=== PATIENT | male | born 1975 | race Hispanic/Latino ===

== ENCOUNTER 2017-12-03 12:47 | Emergency (ER) | payer MEDICARE ==
[2017-12-03 14:23] LABS: BASOPHILS % (AUTO) 0.5 % (0.0-5.0); EOSINOPHILS % (AUTO) 0.8 % (0.0-8.0); HEMATOCRIT 38.7 % (42-54); LYMPHOCYTES % (AUTO) 12.9 % (21.0-51.0); MEAN CORPUSCULAR HEMOGLOBIN 31.4 pg (27.0-33.0); MEAN CORPUSCULAR HGB CONC 35.3 g/dL (32.0-36.0); MEAN CORPUSCULAR VOLUME 89.2 fL (79-99); MONOCYTES % (AUTO) 6.4 % (3.0-13.0); NEUTROPHILS % (AUTO) 79.4 % (40.0-77.0); PLATELET COUNT (AUTO) 214 K/uL (130-400); RED BLOOD CELL COUNT(AUTO) 4.34 MIL/uL (4.50-6.20); RED CELL DISTRIBUTION WIDTH 12.6 % (11.0-15.5); WHITE BLOOD COUNT (AUTO) 9.8 K/uL (4.8-10.8)
[2017-12-03 14:31] LABS: CREATININE 1.9 mg/dL (0.5-1.5); POTASSIUM 4.3 mmol/L (3.5-5.1)
[2017-12-03 14:35] LABS: ALBUMIN 3.3 g/dL (3.5-5.0); BILIRUBIN,TOTAL 0.5 mg/dL (0.2-1.0); CRP QUANTITATIVE 58.5 mg/L (0.00-9.0); TOTAL PROTEIN, SERUM 7.3 g/dL (6.0-8.3)
[2017-12-03] MEDS ORDERED: CLINDAMYCIN HCL 150 MG CAP ONE (15:28)
[2017-12-03 15:54] LABS: ERYTHROCYTE SEDIMENTATION RATE 35 MM/HR (0-15)
== END 2017-12-03 16:45 | disposition home or self-care (01) ==
LOC: EDH 12:47
DX: S92.515A Nondisplaced fracture of proximal phalanx of left lesser toe(s), initial encounter for closed fracture (principal); S91.312A Laceration without foreign body, left foot, initial encounter; E11.9 Type 2 diabetes mellitus without complications; I10 Essential (primary) hypertension; Z98.890 Other specified postprocedural states; Z79.2 Long term (current) use of antibiotics; Z79.899 Other long term (current) drug therapy; X58.XXXA Exposure to other specified factors, initial encounter; Y93.89 Activity, other specified; Y92.098 Other place in other non-institutional residence as the place of occurrence of the external cause; Y99.8 Other external cause status
CPT/HCPCS: 36415; 73660; 80053; 85025; 85651; 86140

== ENCOUNTER → 2020-07-28 | Outpatient (CLI) | payer MEDICARE ==
[~2020-07-28] MED LIST: LIDOCAINE HCL 4% LTA SOL 4 ML VIAL TP ONE
== END | disposition home or self-care (01) ==
LOC: WHH 11:05
PROVIDERS: ATTEND Family Medicine
DX: T87.89 Other complications of amputation stump (principal); E11.621 Type 2 diabetes mellitus with foot ulcer; I70.238 Atherosclerosis of native arteries of right leg with ulceration of other part of lower leg; L97.811 Non-pressure chronic ulcer of other part of right lower leg limited to breakdown of skin; E11.622 Type 2 diabetes mellitus with other skin ulcer; I70.235 Atherosclerosis of native arteries of right leg with ulceration of other part of foot; L97.512 Non-pressure chronic ulcer of other part of right foot with fat layer exposed; I70.232 Atherosclerosis of native arteries of right leg with ulceration of calf; L97.212 Non-pressure chronic ulcer of right calf with fat layer exposed; E66.9 Obesity, unspecified; I70.234 Atherosclerosis of native arteries of right leg with ulceration of heel and midfoot; L97.412 Non-pressure chronic ulcer of right heel and midfoot with fat layer exposed; S91.311A Laceration without foreign body, right foot, initial encounter; E11.52 Type 2 diabetes mellitus with diabetic peripheral angiopathy with gangrene; I96 Gangrene, not elsewhere classified; E11.42 Type 2 diabetes mellitus with diabetic polyneuropathy; K74.60 Unspecified cirrhosis of liver; E03.9 Hypothyroidism, unspecified; Z87.891 Personal history of nicotine dependence; Z68.29 Body mass index [BMI] 29.0-29.9, adult; Z79.899 Other long term (current) drug therapy; Z79.2 Long term (current) use of antibiotics; Z98.890 Other specified postprocedural states; Z90.49 Acquired absence of other specified parts of digestive tract; Z79.4 Long term (current) use of insulin; X58.XXXA Exposure to other specified factors, initial encounter; Y93.89 Activity, other specified; Y92.89 Other specified places as the place of occurrence of the external cause; Y99.8 Other external cause status; Y83.5 Amputation of limb(s) as the cause of abnormal reaction of the patient, or of later complication, without mention of misadventure at the time of the procedure; Y92.238 Other place in hospital as the place of occurrence of the external cause
CPT/HCPCS: 11042; A4450; A6021; A6197

== ENCOUNTER → 2020-08-07 | Outpatient (CLI) | payer MEDICARE | END | disposition home or self-care (01) | LOC: WHH 10:41 | PROVIDERS: ATTEND Family Medicine | DX: T87.89 Other complications of amputation stump (principal); E11.621 Type 2 diabetes mellitus with foot ulcer; I70.235 Atherosclerosis of native arteries of right leg with ulceration of other part of foot; L97.512 Non-pressure chronic ulcer of other part of right foot with fat layer exposed; I70.234 Atherosclerosis of native arteries of right leg with ulceration of heel and midfoot; L97.412 Non-pressure chronic ulcer of right heel and midfoot with fat layer exposed; E11.622 Type 2 diabetes mellitus with other skin ulcer; I70.238 Atherosclerosis of native arteries of right leg with ulceration of other part of lower leg; L97.811 Non-pressure chronic ulcer of other part of right lower leg limited to breakdown of skin; I70.232 Atherosclerosis of native arteries of right leg with ulceration of calf; L97.212 Non-pressure chronic ulcer of right calf with fat layer exposed; I70.231 Atherosclerosis of native arteries of right leg with ulceration of thigh; L97.111 Non-pressure chronic ulcer of right thigh limited to breakdown of skin; E66.9 Obesity, unspecified; S91.311D Laceration without foreign body, right foot, subsequent encounter; E11.52 Type 2 diabetes mellitus with diabetic peripheral angiopathy with gangrene; I96 Gangrene, not elsewhere classified; E11.42 Type 2 diabetes mellitus with diabetic polyneuropathy; K74.60 Unspecified cirrhosis of liver; E03.9 Hypothyroidism, unspecified; Z87.891 Personal history of nicotine dependence; Z68.29 Body mass index [BMI] 29.0-29.9, adult; Z79.899 Other long term (current) drug therapy; Z79.2 Long term (current) use of antibiotics; Z98.890 Other specified postprocedural states; Z90.49 Acquired absence of other specified parts of digestive tract; Z79.4 Long term (current) use of insulin; X58.XXXD Exposure to other specified factors, subsequent encounter; Y83.5 Amputation of limb(s) as the cause of abnormal reaction of the patient, or of later complication, without mention of misadventure at the time of the procedure | CPT/HCPCS: 11042; A6021; A6197 ==

== ENCOUNTER → 2020-08-14 | Outpatient (CLI) | payer MEDICARE | END | disposition home or self-care (01) | LOC: WHH 09:11 | PROVIDERS: ATTEND Family Medicine | DX: T87.89 Other complications of amputation stump (principal); E11.622 Type 2 diabetes mellitus with other skin ulcer; I70.232 Atherosclerosis of native arteries of right leg with ulceration of calf; L97.212 Non-pressure chronic ulcer of right calf with fat layer exposed; I70.238 Atherosclerosis of native arteries of right leg with ulceration of other part of lower leg; L97.811 Non-pressure chronic ulcer of other part of right lower leg limited to breakdown of skin; E11.621 Type 2 diabetes mellitus with foot ulcer; I70.234 Atherosclerosis of native arteries of right leg with ulceration of heel and midfoot; L97.512 Non-pressure chronic ulcer of other part of right foot with fat layer exposed; L97.412 Non-pressure chronic ulcer of right heel and midfoot with fat layer exposed; I70.231 Atherosclerosis of native arteries of right leg with ulceration of thigh; L97.111 Non-pressure chronic ulcer of right thigh limited to breakdown of skin; S81.012A Laceration without foreign body, left knee, initial encounter; S81.011A Laceration without foreign body, right knee, initial encounter; E66.9 Obesity, unspecified; E11.52 Type 2 diabetes mellitus with diabetic peripheral angiopathy with gangrene; I96 Gangrene, not elsewhere classified; E11.42 Type 2 diabetes mellitus with diabetic polyneuropathy; K74.60 Unspecified cirrhosis of liver; E03.9 Hypothyroidism, unspecified; Z87.891 Personal history of nicotine dependence; Z68.29 Body mass index [BMI] 29.0-29.9, adult; Z79.899 Other long term (current) drug therapy; Z79.2 Long term (current) use of antibiotics; Z98.890 Other specified postprocedural states; Z90.49 Acquired absence of other specified parts of digestive tract; Z79.4 Long term (current) use of insulin; Y83.5 Amputation of limb(s) as the cause of abnormal reaction of the patient, or of later complication, without mention of misadventure at the time of the procedure; X58.XXXA Exposure to other specified factors, initial encounter; Y93.89 Activity, other specified; Y92.89 Other specified places as the place of occurrence of the external cause; Y99.8 Other external cause status | CPT/HCPCS: 11042; G0463 ==

== ENCOUNTER 2020-09-07 09:58 | Inpatient (IN) | payer MEDICARE ==
[~2020-09-07] VITALS: Ht 165.1 cm; Wt 95.2 kg
[2020-09-07 10:50] LABS: BASOPHILS % (AUTO) 0.6 % (0.0-5.0); EOSINOPHILS % (AUTO) 0.7 % (0.0-8.0); LYMPHOCYTES % (AUTO) 10.1 % (21.0-51.0); MEAN CORPUSCULAR HGB CONC 32.4 g/dL (32.0-36.0); MEAN CORPUSCULAR VOLUME 98.8 fL (79-99); MONOCYTES % (AUTO) 7.7 % (3.0-13.0); NEUTROPHILS % (AUTO) 80.1 % (40.0-77.0); PLATELET COUNT (AUTO) 200 K/uL (130-400); RED BLOOD CELL COUNT(AUTO) 3.34 MIL/uL (4.50-6.20); RED CELL DISTRIBUTION WIDTH 17.1 % (11.0-15.5); WHITE BLOOD COUNT (AUTO) 9.4 K/uL (4.8-10.8)
[2020-09-07 10:54] VITALS: BP 127/73
[2020-09-07 11:05] LABS: CREATININE 3.2 mg/dL (0.5-1.5); POTASSIUM 4.3 mmol/L (3.5-5.1)
[2020-09-07 11:18] LABS: BILIRUBIN,TOTAL 13.6 mg/dL (0.2-1.0); TOTAL PROTEIN, SERUM 7.1 g/dL (6.0-8.3)
[2020-09-07 11:47] LABS: APPEARANCE,URINE CLOUDY (CLEAR); BILIRUBIN,URINE LARGE (NEGATIVE); COLOR,URINE BROWN (YELLOW); GLUCOSE, URINE (UA) 250 mg/dL (NEGATIVE); KETONES,URINE 5 mg/dL (NEGATIVE); LEUKOCYTE ESTERASE ,URINE NEGATIVE (NEGATIVE); NITRATE,URINE POSITIVE (NEGATIVE); OCCULT BLOOD,URINE LARGE (NEGATIVE); PROTEIN,URINE >=300 mg/dL (NEGATIVE)
[2020-09-07 12:57] LABS: BACTERIA,URINE Moderate /HPF (None Seen); SQUAMOUS EPITHELIAL CELL,UR 0-2 /HPF (0-2)
[2020-09-07 12:59] LABS: RBC,URINE 0-1 /HPF (0-1); WBC,URINE 0-1 /HPF (0-1)
[2020-09-07] MEDS ORDERED: FUROSEMIDE 40MG VIAL IV SCH (13:30)
[2020-09-07] MEDS: FUROSEMIDE 40MG VIAL IV SCH ×2 (13:30→22:06)
[2020-09-07] MEDS ORDERED: CEPH500C2 PO (13:36)
[2020-09-07] MEDS ORDERED: SPIR100T5 PO (13:36)
[2020-09-07] MEDS ORDERED: INSU100I24 SQ (13:36)
[2020-09-07] MEDS ORDERED: INSU100I3 SQ (13:36)
[2020-09-07] MEDS ORDERED: HYDR-3421 PO (13:36)
[2020-09-07] MEDS ORDERED: LEVO50CA4 PO (13:36)
[2020-09-07 14:46] VITALS: BP 130/84
[2020-09-07 14:48] LABS: AMMONIA 38 umol/L (11-32)
[2020-09-07 14:49] LABS: ACETAMINOPHEN < 1 mcg/mL (10-29); ALCOHOL, BLOOD < 3 mg/dL (0-10)
[2020-09-07] MEDS: CEFTRIAXONE 2GM VIAL IVP SCH (14:51)
[2020-09-07 14:52] LABS: AMPHET/METH SCREEN,URINE NEGATIVE (NEGATIVE); BARBITURATE SCREEN, URINE NEGATIVE (NEGATIVE); BENZODIAZEPINES SCREEN,URINE NEGATIVE (NEGATIVE); CANNABINOID SCREEN,URINE NEGATIVE (NEGATIVE); COCAINE SCREEN,URINE POSITIVE (NEGATIVE); CREATININE,URINE RANDOM 235 mg/dL (30-135); OPIATE SCREEN,URINE POSITIVE (NEGATIVE); PHENCYCLIDINE SCREEN,URINE NEGATIVE (NEGATIVE); SODIUM,URINE RANDOM < 13 mmol/l (40-220)
[2020-09-07 15:23] LABS: INR 1.18 (0.85-1.15); PROTHROMBIN TIME 12.7 SEC (9.6-11.6)
[2020-09-07 17:15] VITALS: BP 130/83
[2020-09-07 20:00] VITALS: BP 135/83
[2020-09-08] VITALS (9 sets, daily range): BP systolic 106–142; BP diastolic 69–86
[2020-09-08] MEDS ORDERED: AMIODARONE 900MG VIAL 150 MG in DEXTROSE 5%-WATER 100 ML IV SCH (00:30)
[2020-09-08] MEDS ORDERED: AMIODARONE 900MG VIAL 900 MG in DEXTROSE 5%-WATER 500 ML IV SCH (00:30)
[2020-09-08] MEDS: FUROSEMIDE 40MG VIAL IV SCH ×2 (04:57→21:52)
[2020-09-08 06:28] LABS: BASOPHILS % (AUTO) 0.5 % (0.0-5.0); EOSINOPHILS % (AUTO) 1.3 % (0.0-8.0); HEMATOCRIT 35.4 % (42-54); LYMPHOCYTES % (AUTO) 9.1 % (21.0-51.0); MEAN CORPUSCULAR HEMOGLOBIN 31.7 pg (27.0-33.0); MEAN CORPUSCULAR HGB CONC 31.1 g/dL (32.0-36.0); MONOCYTES % (AUTO) 9.1 % (3.0-13.0); NEUTROPHILS % (AUTO) 79.4 % (40.0-77.0); PLATELET COUNT (AUTO) 213 K/uL (130-400); RED BLOOD CELL COUNT(AUTO) 3.47 MIL/uL (4.50-6.20); RED CELL DISTRIBUTION WIDTH 17.3 % (11.0-15.5)
[2020-09-08 06:57] LABS: ALBUMIN 2.1 g/dL (3.5-5.0); CREATININE 3.2 mg/dL (0.5-1.5); MAGNESIUM 2.5 mg/dL (1.80-2.40); POTASSIUM 4.3 mmol/L (3.5-5.1); TOTAL PROTEIN, SERUM 7.4 g/dL (6.0-8.3)
[2020-09-08] MEDS: PANTOPRAZOLE 40 MG TAB DR PO SCH (08:55)
[2020-09-08] MEDS: METOLAZONE 2.5 MG TABLET PO SCH (08:55)
[2020-09-08] MEDS: SPIRONOLACTONE 25 MG TAB PO SCH ×2 (09:00→15:32)
[2020-09-08] MEDS ORDERED: SPIRONOLACTONE 25 MG TAB PO SCH (09:00)
[2020-09-08] MEDS ORDERED: THIAMINE HCL 100 MG TABLET PO SCH (10:00)
[2020-09-08] MEDS ORDERED: FOLIC ACID 1 MG TABLET PO SCH (10:00)
[2020-09-08] MEDS: CEFTRIAXONE 2GM VIAL IVP SCH (12:56)
[2020-09-08 21:04] LABS: APPEARANCE BODY FLUID SLIGHTLY CLOUDY (CLEAR); BODY FLUID WBC 9 /cu. mm.; COLOR,BODY FLUID YELLOW (LT YELLOW); SPECIMENTYPE,BODY FLUID PLEURAL; TOTAL VOLUME,BODY FLUID 1000 mL
[2020-09-08 21:05] LABS: BODY FLUID RBC 66 /cu. mm.
[2020-09-08 21:31] LABS: BF LYMPHOCYTE 28 %; BF MESOTHELIAL 17 %; BF MONOCYTE 7 %
[2020-09-09 00:01] VITALS: BP 129/80
[2020-09-09 03:53] VITALS: BP 136/80
[2020-09-09 04:28] LABS: BASOPHILS % (AUTO) 0.5 % (0.0-5.0); EOSINOPHILS % (AUTO) 1.5 % (0.0-8.0); HEMATOCRIT 32.9 % (42-54); LYMPHOCYTES % (AUTO) 7.5 % (21.0-51.0); MEAN CORPUSCULAR HEMOGLOBIN 31.8 pg (27.0-33.0); MEAN CORPUSCULAR HGB CONC 31.6 g/dL (32.0-36.0); MEAN CORPUSCULAR VOLUME 100.6 fL (79-99); MONOCYTES % (AUTO) 7.4 % (3.0-13.0); NEUTROPHILS % (AUTO) 82.6 % (40.0-77.0); PLATELET COUNT (AUTO) 202 K/uL (130-400); RED BLOOD CELL COUNT(AUTO) 3.27 MIL/uL (4.50-6.20); RED CELL DISTRIBUTION WIDTH 16.3 % (11.0-15.5); WHITE BLOOD COUNT (AUTO) 9.7 K/uL (4.8-10.8)
[2020-09-09 05:00] LABS: ALBUMIN 1.8 g/dL (3.5-5.0); BILIRUBIN,TOTAL 9.6 mg/dL (0.2-1.0); CREATININE 3.1 mg/dL (0.5-1.5); PHOSPHORUS 5.3 mg/dL (2.5-4.9); POTASSIUM 4.1 mmol/L (3.5-5.1); TOTAL PROTEIN, SERUM 6.7 g/dL (6.0-8.3)
[2020-09-09 05:01] LABS: % IRON SATURATION 24.4 % (30-44)
[2020-09-09] MEDS: FUROSEMIDE 40MG VIAL IV SCH ×3 (05:10→20:55)
[2020-09-09 08:00] VITALS: BP 131/81
[2020-09-09 08:14] LABS: HEPATITIS A ANTIBODY IGM Negative (Negative); HEPATITIS B CORE IGM Negative (Negative); HEPATITIS Bs ANTIGEN SCREEN P Negative (Negative)
[2020-09-09] MEDS ORDERED: COMPOUND IV MISC 1 EACH IVSOLN MISC PRN (09:30)
[2020-09-09 12:49] VITALS: BP 125/74
[2020-09-09 12:49] LABS: INR 1.21 (0.85-1.15)
[2020-09-09] MEDS: CEFTRIAXONE 2GM VIAL IVP SCH (12:58)
[2020-09-09] MEDS: FOLIC ACID 1 MG TABLET PO SCH (13:02)
[2020-09-09] MEDS: THIAMINE HCL 100 MG TABLET PO SCH (13:02)
[2020-09-09] MEDS: SPIRONOLACTONE 25 MG TAB PO SCH (13:02)
[2020-09-09] MEDS: PANTOPRAZOLE 40 MG TAB DR PO SCH (13:02)
[2020-09-09] MEDS: METOLAZONE 2.5 MG TABLET PO SCH (13:07)
[2020-09-09] MEDS: IRON SUCROSE COMPLEX 100 MG in 0.9%NACL 50ML 50 ML IV SCH (13:11)
[2020-09-09] MEDS ORDERED: LIDOCAINE 5% TOPICAL PATCH TP ONE (14:30)
[2020-09-09 17:07] VITALS: BP 138/84
[2020-09-09 20:35] VITALS: BP 119/84
[2020-09-10] VITALS: BP 134/83
[2020-09-10 03:12] VITALS: BP 146/81
[2020-09-10 07:45] VITALS: BP 133/85
[2020-09-10 07:46] LABS: BASOPHILS % (AUTO) 0.4 % (0.0-5.0); EOSINOPHILS % (AUTO) 1.8 % (0.0-8.0); HEMATOCRIT 34.7 % (42-54); LYMPHOCYTES % (AUTO) 8.9 % (21.0-51.0); MEAN CORPUSCULAR HEMOGLOBIN 32.4 pg (27.0-33.0); MEAN CORPUSCULAR HGB CONC 31.7 g/dL (32.0-36.0); MEAN CORPUSCULAR VOLUME 102.1 fL (79-99); MONOCYTES % (AUTO) 9.2 % (3.0-13.0); NEUTROPHILS % (AUTO) 79.2 % (40.0-77.0); PLATELET COUNT (AUTO) 190 K/uL (130-400); RED CELL DISTRIBUTION WIDTH 16.2 % (11.0-15.5); WHITE BLOOD COUNT (AUTO) 7.6 K/uL (4.8-10.8)
[2020-09-10 07:57] LABS: CREATININE 3.1 mg/dL (0.5-1.5); POTASSIUM 4.1 mmol/L (3.5-5.1)
[2020-09-10] MEDS: METOLAZONE 2.5 MG TABLET PO SCH (10:54)
[2020-09-10] MEDS: FOLIC ACID 1 MG TABLET PO SCH (10:54)
[2020-09-10] MEDS: IRON SUCROSE COMPLEX 100 MG in 0.9%NACL 50ML 50 ML IV SCH (10:54)
[2020-09-10] MEDS: THIAMINE HCL 100 MG TABLET PO SCH (10:54)
[2020-09-10] MEDS: SPIRONOLACTONE 25 MG TAB PO SCH (10:54)
[2020-09-10] MEDS: PANTOPRAZOLE 40 MG TAB DR PO SCH (10:54)
[2020-09-10] MEDS: FUROSEMIDE 40MG VIAL IV SCH (10:55)
[2020-09-10 11:21] VITALS: BP 140/84
[2020-09-10] MEDS: CEFTRIAXONE 2GM VIAL IVP SCH (13:35)
[2020-09-10 15:45] VITALS: BP 134/85
[2020-09-10] MEDS: INSULIN HUMULIN R 100 UNIT/ML 3ML SQ SCH ×2 (15:56→20:25)
[2020-09-10 20:00] VITALS: BP 142/81
[2020-09-11] VITALS: BP 135/86
[2020-09-11 04:00] VITALS: BP 141/81
[2020-09-11] MEDS: INSULIN HUMULIN R 100 UNIT/ML 3ML SQ SCH ×4 (05:51→21:07)
[2020-09-11 07:45] LABS: INR 1.14 (0.85-1.15); PROTHROMBIN TIME 12.3 SEC (9.6-11.6)
[2020-09-11 08:01] VITALS: BP 142/89
[2020-09-11 08:05] LABS: ALBUMIN 1.8 g/dL (3.5-5.0); BILIRUBIN,TOTAL 8.8 mg/dL (0.2-1.0); CREATININE 3.3 mg/dL (0.5-1.5); POTASSIUM 3.7 mmol/L (3.5-5.1); TOTAL PROTEIN, SERUM 6.9 g/dL (6.0-8.3)
[2020-09-11] MEDS ORDERED: FUROSEMIDE 20 MG TABLET PO SCH (09:00)
[2020-09-11] MEDS: METOLAZONE 2.5 MG TABLET PO SCH (10:28)
[2020-09-11] MEDS: IRON SUCROSE COMPLEX 100 MG in 0.9%NACL 50ML 50 ML IV SCH (10:28)
[2020-09-11] MEDS: THIAMINE HCL 100 MG TABLET PO SCH (10:28)
[2020-09-11] MEDS: FUROSEMIDE 40MG VIAL IV SCH ×2 (10:28→21:07)
[2020-09-11] MEDS: PANTOPRAZOLE 40 MG TAB DR PO SCH (10:28)
[2020-09-11] MEDS: FOLIC ACID 1 MG TABLET PO SCH (10:28)
[2020-09-11] MEDS: SPIRONOLACTONE 25 MG TAB PO SCH (10:28)
[2020-09-11 12:00] VITALS: BP 146/90
[2020-09-11] MEDS: CEFTRIAXONE 2GM VIAL IVP SCH (14:36)
[2020-09-11 16:00] VITALS: BP 140/81
[2020-09-11 20:00] VITALS: BP 163/82
[2020-09-12] VITALS (7 sets, daily range): BP systolic 137–167; BP diastolic 79–94
[2020-09-12] MEDS: INSULIN HUMULIN R 100 UNIT/ML 3ML SQ SCH ×4 (06:41→22:21)
[2020-09-12] MEDS: PANTOPRAZOLE 40 MG TAB DR PO SCH (10:03)
[2020-09-12] MEDS: THIAMINE HCL 100 MG TABLET PO SCH (10:03)
[2020-09-12] MEDS: FOLIC ACID 1 MG TABLET PO SCH (10:03)
[2020-09-12] MEDS: METOLAZONE 2.5 MG TABLET PO SCH (10:03)
[2020-09-12] MEDS: SPIRONOLACTONE 25 MG TAB PO SCH (10:03)
[2020-09-12] MEDS: FUROSEMIDE 40MG VIAL IV SCH ×2 (10:04→22:20)
[2020-09-12 13:16] LABS: ALPHA-1-ANTITRYPSIN 223 mg/dL (101-187)
[2020-09-12] MEDS: CEFTRIAXONE 2GM VIAL IVP SCH (13:32)
[2020-09-12] MEDS: IRON SUCROSE COMPLEX 100 MG in 0.9%NACL 50ML 50 ML IV SCH (13:32)
[2020-09-13 04:00] VITALS: BP 135/73
[2020-09-13] MEDS: INSULIN HUMULIN R 100 UNIT/ML 3ML SQ SCH ×4 (06:53→21:14)
[2020-09-13] MEDS: IRON SUCROSE COMPLEX 100 MG in 0.9%NACL 50ML 50 ML IV SCH (07:55)
[2020-09-13] MEDS: THIAMINE HCL 100 MG TABLET PO SCH (07:56)
[2020-09-13] MEDS: FOLIC ACID 1 MG TABLET PO SCH (07:56)
[2020-09-13] MEDS: METOLAZONE 2.5 MG TABLET PO SCH (07:56)
[2020-09-13] MEDS: PANTOPRAZOLE 40 MG TAB DR PO SCH (07:56)
[2020-09-13 08:22] VITALS: BP 134/91
[2020-09-13] MEDS: SPIRONOLACTONE 25 MG TAB PO SCH (08:37)
[2020-09-13] MEDS: FUROSEMIDE 40MG VIAL IV SCH ×2 (08:37→21:13)
[2020-09-13 11:25] VITALS: BP 139/90
[2020-09-13] MEDS: CEFTRIAXONE 2GM VIAL IVP SCH (12:54)
[2020-09-13 17:47] VITALS: BP 141/88
[2020-09-13 20:00] VITALS: BP 140/85
[2020-09-14] VITALS: BP 149/97
[2020-09-14 04:00] VITALS: BP 149/84
[2020-09-14 06:24] LABS: HEMATOCRIT 32.6 % (42-54); MEAN CORPUSCULAR HEMOGLOBIN 32.5 pg (27.0-33.0); MEAN CORPUSCULAR HGB CONC 32.8 g/dL (32.0-36.0); MEAN CORPUSCULAR VOLUME 99.1 fL (79-99); RED BLOOD CELL COUNT(AUTO) 3.29 MIL/uL (4.50-6.20); RED CELL DISTRIBUTION WIDTH 15.9 % (11.0-15.5); WHITE BLOOD COUNT (AUTO) 9.2 K/uL (4.8-10.8)
[2020-09-14] MEDS: INSULIN HUMULIN R 100 UNIT/ML 3ML SQ SCH ×4 (06:31→20:55)
[2020-09-14 06:40] LABS: CREATININE 3.3 mg/dL (0.5-1.5); MAGNESIUM 2.1 mg/dL (1.80-2.40); PHOSPHORUS 4.6 mg/dL (2.5-4.9); POTASSIUM 3.7 mmol/L (3.5-5.1)
[2020-09-14] MEDS: FUROSEMIDE 40MG VIAL IV SCH ×2 (09:53→20:21)
[2020-09-14] MEDS: METOLAZONE 2.5 MG TABLET PO SCH (09:54)
[2020-09-14] MEDS: FOLIC ACID 1 MG TABLET PO SCH (09:54)
[2020-09-14] MEDS: THIAMINE HCL 100 MG TABLET PO SCH (09:54)
[2020-09-14] MEDS: PANTOPRAZOLE 40 MG TAB DR PO SCH (09:54)
[2020-09-14] MEDS: SPIRONOLACTONE 25 MG TAB PO SCH (09:54)
[2020-09-14] MEDS: IRON SUCROSE COMPLEX 100 MG in 0.9%NACL 50ML 50 ML IV SCH (10:49)
[2020-09-14 11:45] VITALS: BP 144/88
[2020-09-14] MEDS: CEFTRIAXONE 2GM VIAL IVP SCH (16:24)
[2020-09-14 16:36] VITALS: BP 145/85
[2020-09-14 20:00] VITALS: BP 145/90
[2020-09-14 23:42] VITALS: BP 141/82
[2020-09-15 03:57] VITALS: BP 144/87
[2020-09-15 04:37] LABS: BASOPHILS % (AUTO) 0.7 % (0.0-5.0); EOSINOPHILS % (AUTO) 2.5 % (0.0-8.0); HEMATOCRIT 33.5 % (42-54); LYMPHOCYTES % (AUTO) 9.9 % (21.0-51.0); MEAN CORPUSCULAR HEMOGLOBIN 31.8 pg (27.0-33.0); MEAN CORPUSCULAR HGB CONC 32.5 g/dL (32.0-36.0); MEAN CORPUSCULAR VOLUME 97.7 fL (79-99); MONOCYTES % (AUTO) 8.6 % (3.0-13.0); NEUTROPHILS % (AUTO) 77.5 % (40.0-77.0); PLATELET COUNT (AUTO) 200 K/uL (130-400); RED BLOOD CELL COUNT(AUTO) 3.43 MIL/uL (4.50-6.20); WHITE BLOOD COUNT (AUTO) 7.7 K/uL (4.8-10.8)
[2020-09-15 04:46] LABS: CREATININE 3.3 mg/dL (0.5-1.5); POTASSIUM 3.9 mmol/L (3.5-5.1)
[2020-09-15] MEDS: INSULIN HUMULIN R 100 UNIT/ML 3ML SQ SCH ×3 (06:24→17:10)
[2020-09-15 08:00] VITALS: BP 128/76
[2020-09-15] MEDS ORDERED: FUROSEMIDE 40MG VIAL IV SCH (09:30)
[2020-09-15] MEDS: PANTOPRAZOLE 40 MG TAB DR PO SCH (10:17)
[2020-09-15] MEDS: THIAMINE HCL 100 MG TABLET PO SCH (10:17)
[2020-09-15] MEDS: IRON SUCROSE COMPLEX 100 MG in 0.9%NACL 50ML 50 ML IV SCH (10:17)
[2020-09-15] MEDS: FOLIC ACID 1 MG TABLET PO SCH (10:17)
[2020-09-15 12:00] VITALS: BP 152/93
[2020-09-15] MEDS: CEFTRIAXONE 2GM VIAL IVP SCH (14:44)
[2020-09-15] MEDS ORDERED: INSULIN GLARGINE 100 UNITS/ML 10 ML VIAL SQ ONE (15:30)
[2020-09-15 16:00] VITALS: BP 144/85
== END 2020-09-15 20:48 | DRG 291 ==
LOC: EDH 09:58 → EDHIP 13:24 → 4CH 17:03
PROVIDERS: ADMIT Internal Medicine; ATTEND Internal Medicine
PROC: 0W993ZZ Drainage of Right Pleural Cavity, Percutaneous Approach (ICD-10-PCS; principal; 2020-09-08)
DX: I13.0 Hypertensive heart and chronic kidney disease with heart failure and stage 1 through stage 4 chronic kidney disease, or unspecified chronic kidney disease (principal); I50.43 Acute on chronic combined systolic (congestive) and diastolic (congestive) heart failure; K72.00 Acute and subacute hepatic failure without coma; J96.00 Acute respiratory failure, unspecified whether with hypoxia or hypercapnia; K76.7 Hepatorenal syndrome; N17.9 Acute kidney failure, unspecified; E87.1 Hypo-osmolality and hyponatremia; J98.11 Atelectasis; R18.8 Other ascites; J91.8 Pleural effusion in other conditions classified elsewhere; L97.419 Non-pressure chronic ulcer of right heel and midfoot with unspecified severity; L97.819 Non-pressure chronic ulcer of other part of right lower leg with unspecified severity; E10.51 Type 1 diabetes mellitus with diabetic peripheral angiopathy without gangrene; E78.00 Pure hypercholesterolemia, unspecified; D53.9 Nutritional anemia, unspecified; E10.22 Type 1 diabetes mellitus with diabetic chronic kidney disease; E78.5 Hyperlipidemia, unspecified; E88.09 Other disorders of plasma-protein metabolism, not elsewhere classified; F14.10 Cocaine abuse, uncomplicated; I25.10 Atherosclerotic heart disease of native coronary artery without angina pectoris; I42.9 Cardiomyopathy, unspecified; I48.91 Unspecified atrial fibrillation; K74.60 Unspecified cirrhosis of liver; N18.9 Chronic kidney disease, unspecified; Z20.822 Contact with and (suspected) exposure to COVID-19; R53.81 Other malaise; F11.10 Opioid abuse, uncomplicated; I08.3 Combined rheumatic disorders of mitral, aortic and tricuspid valves; Z74.01 Bed confinement status; Z79.4 Long term (current) use of insulin; Z89.512 Acquired absence of left leg below knee; Z91.14 Patient's other noncompliance with medication regimen; Z99.3 Dependence on wheelchair
CPT/HCPCS: 32554; 36415; 71045; 74181; 76700; 80048; 80053; 80074; 80305; 81001; 82103; 82105; 82140; 82390; 82570; 82945; 82948; 82977; 83516; 83540; 83550; 83605; 83615; 83735; 83880; 83986; 84100; 84157; 84300; 84484; 85025; 85027; 85610; 86038; 86215; 86235; 86255; 86701; 86804; 87040; 87071; 87088; 87116; 87205; 87206; 87340; 87390; 87522; 87635; 87804; 89051; 93005; 93306; 93356; 97039; C1729; C9803; G0378; J0696; J1756; J1815; J1940

== ENCOUNTER 2020-10-03 10:08 | Day surgery (SDC) | payer MEDICARE ==
[~2020-10-03 10:08] MED LIST changes: +CEPH500C2 PO; +HEPARIN 10,000 UNIT/10ML (1,000 UNIT/ML) VIAL ONE; +HYDR-3421 PO; +INSU100I24 SQ; +INSU100I3 SQ; +LEVO50CA4 PO; -LIDOCAINE HCL 4% LTA SOL 4 ML VIAL TP ONE; +LIDOCAINE HCL 400MG/20ML VIAL ONE; +SODIUM BICARB 50MEQ 50ML VIAL 50 ML ONE; +SPIR100T5 PO
[2020-10-03] MEDS ORDERED: HEPARIN 1,000 UNIT VIAL ONE (10:09)
[2020-10-03 12:35] VITALS: BP 111/75
[2020-10-03 12:50] VITALS: BP 128/65
[2020-10-03 13:05] VITALS: BP 130/75
[2020-10-03 13:20] VITALS: BP 127/73
== END 2020-10-03 13:25 | disposition home or self-care (01) ==
LOC: DAH 10:08 → CLH 10:08
PROVIDERS: ATTEND Internal Medicine Nephrology
DX: Z45.2 Encounter for adjustment and management of vascular access device (principal); I13.2 Hypertensive heart and chronic kidney disease with heart failure and with stage 5 chronic kidney disease, or end stage renal disease; N18.6 End stage renal disease; E11.22 Type 2 diabetes mellitus with diabetic chronic kidney disease; Z99.2 Dependence on renal dialysis; E78.5 Hyperlipidemia, unspecified; Z79.899 Other long term (current) drug therapy
CPT/HCPCS: 36558; 77001; 82948; A4216; A4222; A4223; A4663; C1750; C1894; J1644 ×2; J3490 ×2